=== PATIENT | female | born 1935 | race Caucasian/White ===

== ENCOUNTER 2016-11-08 03:54 | Emergency (ER) | payer MEDICARE, BC ==
--- NOTE | 2016-11-08 04:11 | Emergency Department Record ---
History of Present Illness - General Chief Complaint: Fall Injury Stated Complaint: FALL Time Seen by Provider: 11/08/16 04:06 Source: Patient Mode of Arrival: EMS Limitations: No limitations - History of Present Illness Initial Comments: 81 yo female presents to ED from [facility] with possible fall this morning. Patient has a history of dementia, cannot describe this morning. Patient denies any form or pain or injury on examination. Patient denies numbness, tingling, or weakness on examination. MD Complaint: Fall -: Unknown Fall From: Other When Fall Occurred: Unsure Fall Witnessed: No Place Fall Occurred: Home Loss of Consciousness: Other Prolonged Down Time?: Unclear Symptoms Prior to Fall: None Associated Symptoms: Denies - Viola Coma Scale Eye Response: (4) Open spontaneously Motor Response: (6) Obeys commands Verbal Response: (4) Confused conversation Viola Total: 14 - Related Data Home Medications Medication Instructions Recorded Confirmed Last Taken Cyanocobalamin (Vitamin B-12) 500 mcg PO DAILY 11/08/16 11/08/16 Unknown [Vitamin B-12] Cyclobenzaprine HCl [Flexeril] 5 mg PO DAILY PRN 11/08/16 11/08/16 Unknown Loratadine [Claritin] 10 mg PO DAILY 11/08/16 11/08/16 Unknown Quetiapine Fumarate [Seroquel] 25 mg PO QHS 11/08/16 11/08/16 Unknown Tramadol HCl [Ultram] 100 mg PO Q8H PRN 11/08/16 11/08/16 Unknown Allergies Allergy/AdvReac Type Severity Reaction Status Date / Time No Known Drug Allergies Allergy Verified 11/08/16 03:57 Travel Screening - Travel/Exposure Within Last 30 Days Have you traveled within the last 30 days?: No Review of Systems ROS unobtainable: Due to mental status Past Medical History - SOCIAL HISTORY Smoking Status: Never smoker Alcohol Use: None Drug Use: None - RESPIRATORY Hx Respiratory Disorders: No - CARDIOVASCULAR Hx Cardio Disorders: Yes Hx Irregular Heartbeat: Yes (a-fib) - NEURO Hx Neuro Disorders: Yes Hx Dementia: Yes - ENDOCRINE Hx Endocrine Disorders: No - MUSCULOSKELETAL Hx Musculoskeletal Disorders: Yes Hx Fibromyalgia: Yes - HEMATOLOGY/ONCOLOGY Hx Hematology/Oncology Disorders: Yes Hx Anemia: Yes Family Medical History Any Significant Family History?: No Physical Exam - General General Appearance: Alert, Cooperative, No acute distress Limitations: No limitations - Head Head exam: Atraumatic, Normocephalic, Normal inspection Head exam detail: negative: Abrasion, Contusion, Jon's sign, General tenderness, Hematoma, Laceration - Eye Eye exam: Normal appearance. negative: Conjunctival injection, Periorbital swelling, Periorbital tenderness, Scleral icterus - ENT Ear exam: negative: Auricular hematoma, Auricular trauma Nasal Exam: negative: Active bleeding, Discharge, Dried blood, Foreign body Mouth exam: negative: Drooling, Laceration, Muffled voice, Tongue elevation - Neck Neck exam: Normal inspection. negative: Meningismus, Tenderness - Respiratory Respiratory exam: Normal lung sounds bilaterally. negative: Respiratory distress, Rhonchi, Stridor, Wheezes - Cardiovascular Cardiovascular Exam: Regular rate, Normal rhythm, Normal heart sounds - GI/Abdominal GI/Abdominal exam: Soft. negative: Rebound, Rigid, Tenderness - Rectal Rectal exam: Deferred - exam: Deferred - Extremities Extremities exam: Normal inspection. negative: Pedal edema, Tenderness - Back Back exam: Reports: Normal inspection. Denies: CVA tenderness (R), CVA tenderness (L) - Neurological Neurological exam: Alert. negative: Motor sensory deficit - Psychiatric Psychiatric exam: Normal affect, Normal mood - Skin Skin exam: Normal color. negative: Abrasion Type of lesion: negative: abrasion Course Vital Signs 11/08/16 03:57 Temperature 97.5 F L Pulse Rate 74 Respiratory 18 Rate Blood Pressure 202/95 Pulse Ox 96 - Reevaluation(s) Reevaluation #1: 11/08/16 05:30 UA reviewed and is grossly unremarkable for an acute process. CT Brain: No acute process CT Cervical Spine: No acute process Patient and her family updated on all results, and patient appears stable for discharge back to [facility] at this time. Disposition Disposition: Discharge Clinical Impression: Fall from bed, initial encounter Qualifiers: Encounter type: initial encounter Qualified Code(s): W06.XXXA - Fall from bed, initial encounter Instructions: Fall Prevention for Older Adults (ED) Additional Instructions: Return to ED if your symptoms worsen or if you have any concerns. Follow-up with your family doctor in 3-5 days as directed. Forms: Patient Portal Access Time of Disposition: 04:10
[2016-11-08 04:49] LABS: URINE APPEARANCE CLEAR; URINE BILIRUBIN NEGATIVE (NEGATIVE); URINE BLOOD NEGATIVE (NEGATIVE); URINE COLOR YELLOW; URINE GLUCOSE (UA) NEGATIVE (NEGATIVE); URINE KETONE NEGATIVE (NEGATIVE); URINE LEUKOCYTE ESTERASE NEGATIVE (NEGATIVE); URINE NITRITE NEGATIVE (NEGATIVE); URINE PROTEIN NEGATIVE (NEGATIVE); URINE UROBILINOGEN 0.2 E.U./dL (0.20 - 1.00)
--- NOTE | 2016-11-10 17:00 | CT SCAN REPORT ---
DATE: 11/08/2016 at 4:35 a.m. EXAM: CT SCAN OF THE BRAIN WITHOUT CONTRAST. HISTORY: Found on floor. Unknown injury. TECHNIQUE: Standard CT imaging of the brain was performed in the axial plane without contrast. Additional coronal and sagittal reformatted images were also performed. COMPARISON: None. FINDINGS: There is mild generalized atrophy. The ventricles and subarachnoid spaces are otherwise normal. There is chronic small-vessel ischemic change within the periventricular and subcortical white matter of both cerebral hemispheres. There is no mass, mass effect, intracranial hemorrhage, visible acute infarct, or abnormal extra-axial fluid. The skull is intact. The orbits , sinuses, and mastoids are normal. IMPRESSION: 1. NO ACUTE INTRACRANIAL ABNORMALITY OR SKULL FRACTURE. 2. MILD ATROPHY AND CHRONIC SMALL-VESSEL ISCHEMIC CHANGES. JOB NUMBER: [id number] [facility]
--- NOTE | 2016-11-10 17:21 | CT SCAN REPORT ---
DATE: 11/08/2016 at 4:38 a.m. EXAM: CT SCAN OF THE CERVICAL SPINE WITHOUT CONTRAST. HISTORY: Found on floor. Unknown trauma. TECHNIQUE: Standard CT imaging of the cervical spine was performed in the axial plane without contrast. Additional coronal and sagittal reformatted images were also performed. COMPARISON: None. FINDINGS: There is mild straightening of the cervical lordosis. The craniocervical and cervicothoracic junctions appear normal. There is severe disc space narrowing from the C4 through the C7 levels with associated endplate degenerative changes. There is mild anterolisthesis of C4 on C5 secondary to bilateral facet arthropathy. Facet arthropathy is present throughout the cervical spine. There is mild disc space narrowing at the remaining cervical levels. There are moderate arthritic changes at the atlantodental articulation. There is no fracture, subluxation, or prevertebral soft tissue swelling. There is borderline to mild central canal stenosis from the C4 through the C7 levels. Moderate neural foraminal narrowing is present at multiple levels. Vascular calcifications are present within the carotid vessels bilaterally. A 1.0 cm low-density nodule is present within the right thyroid lobe. The remaining neck soft tissues appear normal. IMPRESSION: 1. NO ACUTE CERVICAL SPINE PATHOLOGY. 2. 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 3. A 1.0 CM RIGHT THYROID NODULE. JOB NUMBER: [id number] [facility]
== END 2016-11-08 06:04 ==
LOC: ER 03:54
DX: Z04.3 Encounter for examination and observation following other accident (principal); F03.90 Unspecified dementia, unspecified severity, without behavioral disturbance, psychotic disturbance, mood disturbance, and anxiety; I48.91 Unspecified atrial fibrillation; M50.30 Other cervical disc degeneration, unspecified cervical region; W06.XXXA Fall from bed, initial encounter; Y92.121 Bathroom in nursing home as the place of occurrence of the external cause
CPT/HCPCS: 70450; 72125; 81003; 99283; 99284

== ENCOUNTER 2017-03-07 15:52 | Emergency (ER) | payer MEDICARE ==
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
== END 2017-03-07 18:49 | disposition home or self-care (01) ==
LOC: ER 15:52
DX: S20.20XA Contusion of thorax, unspecified, initial encounter (principal); M54.2 Cervicalgia; R07.81 Pleurodynia; R51 Headache; W19.XXXA Unspecified fall, initial encounter; Z91.81 History of falling; Y92.121 Bathroom in nursing home as the place of occurrence of the external cause
CPT/HCPCS: 70450; 71111; 72125; 99283; 99284

== ENCOUNTER 2017-05-09 12:07 | Emergency (ER) | payer MEDICARE ==
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
--- NOTE | 2017-05-09 17:59 | CT SCAN REPORT ---
EXAM: CT SCAN CERVICAL SPINE WO CONTRAST HISTORY: PATIENT FELL. HEAD AND NECK INJURY. TECHNIQUE: CT of the cervical spine is performed without contrast. COMPARISON: None. FINDINGS: There is loss of the normal lordotic curvature, which is nonspecific , possibly due to patient positioning or muscle spasm. There is mild retrolisthesis of C6 on C7 and mild anterolisthesis of C4 on C5, most likely due to arthritic change. Disc space narrowing is present throughout the cervical spine. Facet arthritic changes and uncovertebral spurring present throughout the cervical spine. Multiple areas of neural foraminal narrowing are present. There is no soft tissue swelling. The dens is unremarkable. Lung apices and upper mediastinum are unremarkable. IMPRESSION: 1. NO FRACTURE OR ACUTE OSSEOUS ABNORMALITY. 2. DIFFUSE ARTHRITIC CHANGES THROUGHOUT THE CERVICAL SPINE. [facility]: [id number] [facility]
== END 2017-05-09 13:32 | disposition home or self-care (01) ==
LOC: ER 12:07
DX: S00.03XA Contusion of scalp, initial encounter (principal); M54.2 Cervicalgia; V00.811A Fall from moving wheelchair (powered), initial encounter; F03.90 Unspecified dementia, unspecified severity, without behavioral disturbance, psychotic disturbance, mood disturbance, and anxiety; Y92.488 Other paved roadways as the place of occurrence of the external cause
CPT/HCPCS: 70450; 72125; 99283